=== PATIENT | male | born 2000 | race Caucasian/White ===

== ENCOUNTER 2023-04-09 01:36 | Emergency (ER) | payer OTHER ==
[2023-04-09 01:39] VITALS: BP 132/66; PULSE 92
== END 2023-04-09 02:27 | disposition home or self-care (01) ==
LOC: CC.ED 01:36
DX: S43.402A Unspecified sprain of left shoulder joint, initial encounter (principal); Z88.1 Allergy status to other antibiotic agents; W01.198A Fall on same level from slipping, tripping and stumbling with subsequent striking against other object, initial encounter
CPT/HCPCS: 73030-LT; 99283